=== PATIENT | female | born 1965 | race Caucasian/White ===

== ENCOUNTER 2018-07-21 09:44 | Day surgery (SDC) | payer OTHER ==
[2018-07-21] MEDS ORDERED: LACTATED RINGER'S 1,000 ML IV (11:00)
[2018-07-21] MEDS: ONDANSETRON 4 MG INJ IV ×2 (12:25→16:49)
[2018-07-21] MEDS: morphine 2 MG INJ IV (12:26)
[2018-07-21] MEDS ORDERED: ONDANSETRON 4 MG INJ IV (12:30)
[2018-07-21] MEDS ORDERED: FENTAnyl 50 MCG/ML VIAL (15:23)
[2018-07-21] MEDS ORDERED: MIDAZOLAM 1 MG/ML 2 ML INJ (15:23)
[2018-07-21] MEDS: LIDOCAINE 1%/EPI (1:100,000) (MDV) 20 ML (15:34)
[2018-07-21] MEDS: OXYMETAZOLINE 0.05% 15 ML NAS SPRAY NASAL (15:34)
[2018-07-21] MEDS: NEOMYC/POLYMYX/BACIT 30 GM OINT (15:48)
[2018-07-21] MEDS ORDERED: hydrALAzine 20 MG INJ (16:00)
[2018-07-21] MEDS ORDERED: ONDANSETRON 4 MG INJ (16:15)
[2018-07-21] MEDS ORDERED: ROCURONIUM 50 MG INJ (16:18)
[2018-07-21] MEDS ORDERED: PROPOFOL 20 ML (16:18)
[2018-07-21] MEDS ORDERED: GLYCOPYRROLATE 0.4 MG INJ (16:18)
[2018-07-21] MEDS ORDERED: NEOSTIGMINE 10 MG INJ (16:18)
[2018-07-21] MEDS ORDERED: LIDOCAINE 2% (SDV) 5 ML INJ (16:18)
[2018-07-21] MEDS ORDERED: CEFAZOLIN 1 GM INJ (16:18)
[2018-07-21] MEDS ORDERED: DIPHENHYDRAMINE 50 MG INJ IV (16:30)
[2018-07-21] MEDS ORDERED: METOCLOPRAMIDE 10 MG INJ IV (16:30)
[2018-07-21] MEDS ORDERED: LABETALOL HCL 20MG INJ IV (16:30)
[2018-07-21] MEDS ORDERED: HYDROmorphONE 1 MG/5 ML IV SYRINGE IV (16:30)
[2018-07-21] MEDS: FENTAnyl 50 MCG/ML VIAL IV ×2 (16:47→17:04)
[2018-07-21] MEDS: MEPERIDINE 25 MG INJ IV (16:49)
[2018-07-21] MEDS: HYDROmorphONE 1 MG/5 ML IV SYRINGE IV ×2 (16:49→17:04)
== END 2018-07-21 18:00 | disposition home or self-care (01) ==
LOC: SDS 09:44
DX: J34.3 Hypertrophy of nasal turbinates (principal); J34.89 Other specified disorders of nose and nasal sinuses; J34.2 Deviated nasal septum; K21.9 Gastro-esophageal reflux disease without esophagitis; E66.9 Obesity, unspecified
CPT/HCPCS: 20912; 84703; 88300